=== PATIENT | female | born 1975 | race Two or more races ===

== ENCOUNTER 2018-06-02 21:44 | Emergency (ER) | payer OTHER ==
[~2018-06-02] VITALS: Ht 162.6 cm; Wt 72.6 kg
[2018-06-02 21:50] VITALS: BP 140/80
--- NOTE | 2018-06-02 21:50 | NUR ---
ED Nurse Note: PT arrived to ER with LAFD 41 with a pt cheif complaint of abdominal pain. denies N/V/D.
--- NOTE | 2018-06-02 21:51 | Emergency Room Report ---
History of Present Illness General Source: Patient, EMS Present Illness HPI This is a 42-year-old female with a recent diagnosis of HIV. She presents with chief complaint of rash and itching. Also with abdominal pain. Onset was acute. She was at a nearby restaurant eating not chills when she developed itchiness and rash. There is swelling to her body. Then she developed severe suprapubic lower abdominal pain. Pain is 9 out of 10. No nausea no vomiting. No fever or chills. No urinary complaint. Does have some shortness of breath also. Allergies: Coded Allergies: No Known Allergies (Unverified , 06/02/18) Patient History Past Medical History: see triage record, old chart reviewed Past Surgical History: none Pertinent Family History: none Social History: Denies: smoking Now: No Immunizations: other Reviewed Nursing Documentation: PMH: Agreed; PSxH: Agreed Review of Systems Eye: Denies: eye pain, blurred vision ENT: Denies: ear pain, nose congestion, throat swelling Respiratory: Denies: cough, shortness of breath Cardiovascular: Denies: chest pain, palpitations Gastrointestinal: Reports: abdominal pain; Denies: diarrhea, nausea, vomiting Musculoskeletal: Denies: back pain, joint pain Skin: Reports: rash Neurological: Denies: headache, numbness Endocrine: Denies: increased thirst, increased urine Hematologic/Lymphatic: Denies: easy bruising All Other Systems: negative except mentioned in HPI Physical Exam vitals unremarkable Sp02 EP Interpretation: reviewed, normal General Appearance: well appearing, no apparent distress, alert Head: normocephalic, atraumatic Eyes: bilateral eye PERRL, bilateral eye EOMI ENT: hearing grossly normal, normal pharynx Neck: full range of motion, supple, no meningismus Respiratory: chest non-tender, lungs clear, normal breath sounds Cardiovascular #1: regular rate, rhythm, no murmur Gastrointestinal: normal bowel sounds, non tender, no mass, no organomegaly, no bruit, non-distended Musculoskeletal: back normal, gait/station normal, normal range of motion Neurologic: alert, oriented x3 Psychiatric: anxious Skin: warm/dry, rash - Diffuse urticaria Medical Decision Making Diagnostic Impression: Primary Impression: Abdominal pain Qualified Codes: R10.30 - Lower abdominal pain, unspecified Additional Impressions: UTI (urinary tract infection) Qualified Codes: N30.00 - Acute cystitis without hematuria Allergic reaction Qualified Codes: T78.40XA - Allergy, unspecified, initial encounter ER Course Patient presents with acute abdominal pain. Suprapubic. Urinalysis showed possible UTI. CT scan Unremarkable. She felt better now. She may also have an allergic reaction. Better with after Benadryl and Solu-Medrol. We'll discharge home. CT/MRI/US Diagnostic Results CT/MRI/US Diagnostic Results : Imaging Test Ordered: CT abdomen and pelvis Impression Read by radiologist. Portion of appendix appeared mildly prominent. However this may be folded upon itself. Status: improved Disposition: HOME, SELF-CARE Condition: Stable Scripts Nitrofurantoin Monohyd/M-Cryst* (MACROBID 100 MG*) 100 Mg Capsule 100 MG ORAL EVERY 12 HOURS, #14 CAP Prov: Gaudencio Webb MD 06/02/18 Diphenhydramine Hcl* (BENADRYL*) 25 Mg Capsule 50 MG ORAL Q6H PRN for Itching, #30 CAP Prov: Gaudencio Webb MD 06/02/18 Additional Instructions: Follow-up your DrSophia in 2-3 days. Return if symptom worsen. Gaudencio Webb MD Jun 02, 2018 21:51
[2018-06-02] MEDS ORDERED: DiphenhydrAMINE 50mg/ml Inj IVP ONE (22:00)
[2018-06-02] MEDS ORDERED: Solu-MEDROL 125mg Inj IVP ONE (22:00)
--- NOTE | 2018-06-02 22:03 | NUR ---
ED Nurse Note: URINE AND BLOOD SPECIMEN SENT TO LAB
[2018-06-02 22:09] LABS: HEMATOCRIT 46.7 % (37.0-47.0); HEMOGLOBIN 15.4 G/DL (12.0-16.0); MEAN CORPUSCULAR VOLUME 94 FL (80-99); PLATELET COUNT 250 K/UL (150-450); RED BLOOD COUNT 4.98 M/UL (4.20-5.40); RED CELL DISTRIBUTION WIDTH 11.8 % (11.6-14.8); WHITE BLOOD COUNT 9.1 K/UL (4.8-10.8)
[2018-06-02] MEDS ORDERED: Ketorolac 30mg Inj IV ONE (22:15)
[2018-06-02 22:17] LABS: APPEARANCE,URINE SLIGHTLY CLOUDY; BILIRUBIN, URINE NEGATIVE (NEGATIVE); GLUCOSE, URINE (UA) NEGATIVE (NEGATIVE); KETONES,URINE 1+ (NEGATIVE); LEUKOCYTE ESTERASE ,URINE 1+ (NEGATIVE); NITRITE,URINE POSITIVE (NEGATIVE); PH,URINE 6 (4.5-8.0); PROTEIN,URINE 3+ (NEGATIVE); UROBILINOGEN,URINE NORMAL MG/DL (0.0-1.0)
[2018-06-02 22:18] LABS: COLOR,URINE YELLOW
[2018-06-02 22:21] LABS: ANION GAP 15 mmol/L (5-15); BLOOD UREA NITROGEN 12 mg/dL (7-18); CALCIUM 9.3 MG/DL (8.5-10.1); CARBON DIOXIDE 23 MMOL/L (21-32); CHLORIDE 105 MMOL/L (98-107); CREATININE 0.7 MG/DL (0.55-1.30); POTASSIUM 3.3 MMOL/L (3.5-5.1); SODIUM 143 MMOL/L (136-145)
[2018-06-02 22:25] LABS: ALANINE AMINOTRANSFERASE 26 U/L (12-78); ALBUMIN 3.8 G/DL (3.4-5.0); ALBUMIN/GLOBULIN RATIO 0.8 (1.0-2.7); ALKALINE PHOSPHATASE 96 U/L (46-116); ASPARTATE AMINO TRANSFERASE 23 U/L (15-37); BILIRUBIN,TOTAL 0.1 MG/DL (0.2-1.0)
--- NOTE | 2018-06-02 22:36 | NUR ---
ED Nurse Note: PT LEFT FOR CT
[2018-06-02] MEDS ORDERED: cefTRIAXone 1 GM in NS 55 ML IVPB ONE (22:45)
--- NOTE | 2018-06-02 22:48 | NUR ---
ED Nurse Note: PT RETURNED FROM CT
[2018-06-02 23:51] VITALS: BP 158/80
[2018-06-02] MEDS ORDERED: BENADRYL25 MG ORAL (23:55)
[2018-06-02] MEDS ORDERED: NITROFURANTOIN100 M2 ORAL (23:55)
[2018-06-03 00:12] VITALS: BP 158/80
--- NOTE | 2018-06-03 00:12 | NUR ---
ER DISCHARGE NOTE: Patient is cleared to be discharged per ERMD, pt is aox4, on room air, with stable vital signs. pt was given dc and prescription instructions, pt was able to verbalize understanding, pt id band and iv site removed without complications. pt is able to ambulate with steady gait. pt took all belongings.
--- NOTE | 2018-06-03 09:23 | Diagnostic Imaging Report ---
Indication: Abdominal pain Technique: Continuous helical transaxial imaging of the abdomen and pelvis was obtained from the lung bases to the pubic symphysis. No intravenous contrast was administered. Coronal 2-D reformats were also obtained. Automatic Exposure Control was utilized. Total Dose length Product (DLP): 778.[address] Dose Index Volume (CTDIvol): 15.91 mGy Comparison: none Findings: There are no inflammatory changes to suggest acute appendicitis. The appendix is partially seen and normal as such. No evidence of bowel obstruction or free fluid. The gallbladder is unremarkable. Evaluation of solid organs is limited on noncontrast imaging. There is no nephrolithiasis or hydronephrosis appreciated. There is suggestion of a 3 x 2 cm left ovarian cyst which is not evaluated well on this examination. Vacuum disc phenomena narrowing at L5-S1 noted. IMPRESSION: No acute findings. [facility] has communicated the preliminary results to the Emergency Department. Their findings are largely concordant with this report. The CT scanner at [facility] is accredited by the [employer] and the scans are performed using dose optimization techniques as appropriate to a performed exam including Automatic Exposure control.
== END 2018-06-03 00:12 | disposition home or self-care (01) ==
LOC: EDBD 21:44 → EMR 22:00
DX: N30.00 Acute cystitis without hematuria (principal); R10.30 Lower abdominal pain, unspecified; T78.40XA Allergy, unspecified, initial encounter; X58.XXXA Exposure to other specified factors, initial encounter
CPT/HCPCS: 36415; 74176; 80053; 81003; 81025; 83690; 85007; 85025; 96365; 96375; 99284; J0696; J1200; J1885; J2930